=== PATIENT | female | born 1995 | race Caucasian/White ===

== ENCOUNTER → 2018-12-17 | Outpatient (REF) | payer OTHER | LOC: M SFHCLERA 20:16 | PROVIDERS: ATTEND Physician Assistant | DX: J02.9 Acute pharyngitis, unspecified (principal) ==

== ENCOUNTER → 2019-04-29 | Outpatient (REF) | payer OTHER | LOC: M SFHCLERA 15:36 | PROVIDERS: ATTEND Physician Assistant | DX: J02.9 Acute pharyngitis, unspecified (principal) ==